=== PATIENT | male | born 1945 | race Caucasian/White ===

== ENCOUNTER → 2018-11-10 | Outpatient (CLI) | END | disposition home or self-care (01) ==

== ENCOUNTER → 2018-12-02 | Outpatient (CLI) | payer MEDICARE, BC ==
[~2018-12-02] MED LIST: ATOR-2 PO; CARV3.1260 PO; FURO20TA3 PO; GLIP2.5T3 PO; METF100010 PO
--- NOTE | 2018-12-02 15:44 | CONS ---
Date/Time of Note Date/Time of Note DATE: 12/02/18 TIME: 15:37 Consult Date/Type/Reason Admit Date/Time Initial Consult Date Kimberley Acharya returns to clinic today approximately 3 weeks after a left knee steroid injection. The last visit his pain was 10 out of 10 he is unable to bear full weight secondary to the pain. Since the injection his pain is much better he continues to have 34/10 pain and/or discomfort. However his main complaint today is that he feels his left lower extremity is heavy and weak. He continues to be unable to walk long distances such as to his [place] secondary to this weakness. He denies any lower back pain. Denies any numbness or tingling. He does state he has some issues with balance and at times requires to hold onto something. He does not want to use a gait aid as it exacerbates his right shoulder pain. Objective Weight: 204 pounds Height: 5 foot 7 inches Temperature: 98.0 Heart Rate: 70 Blood Pressure: 115/58 Respiratory Rate: 12 Exam General: Alert, oriented x3. No Acute Distress. Heart: Regular rate and rhythm. Lungs: No respiratory distress. No accessory muscle use. Musculoskeletal: Left Knee This is a well developed male who is alert, oriented times three and in no apparent distress. Skin is intact over the left knee. In addition there are multiple chronic but healing ulcers around the ankle and distal tibia. There is no signs of infection or drainage. There is 1+ pitting edema and chronic vascular changes in the foot and toes. Observation of the patient's gait reveals a minimally antalgic gait with Varus thrust. Frontal plane alignment is varus. The patient does have some difficulty keeping equilibrium while walking down the hallway. There is pain on palpation of medial joint line. The patient demonstrates grinding anteriorly with ROM. Range of motion: 5 extension to approximately 120 degrees of flexion. Collateral ligament testing reveals no instability with varus or valgus stress at 0 and 30 degrees of flexion. Negative Lin's and negative posterior drawer. Neurovascularly intact with 5/5 EHL/tibialis anterior/gastroc. Sensation intact to light touch in a sural, saphenous, deep peroneal, superficial peroneal, medial and lateral plantar nerve distribution. Palpable, symmetric dorsalis pedis and posterior tibial pulses in both lower extremities. Hip examination normal. Deep tendon reflexes +1 bilaterally lower extremity Assessment/Plan Chief Complaint/Hosp Course 73-year-old male 2 weeks status post left knee steroid injection. The steroid injection significantly helped the pain. However he does feel weakness in his left lower extremity. On examination today I do have some concerns about his balance. This may be contributing to his left lower extremity weakness. There are no obvious neural deficits. His weakness can also be from deconditioning and disuse. Plan: Physical therapy for strengthening and kinematic optimization of his left knee. He may also benefit from gait and balance training Follow-up with PCP regarding potential balance issue Follow-up in 6-8 weeks prior to his trip to [facility] for reevaluation of the left knee. JOSELYN ROBERSON MD Dec 02, 2018 15:44
== END | disposition home or self-care (01) ==
LOC: HKI 14:00
PROVIDERS: ATTEND Orthopaedic Surgery Adult Reconstructive Orthopaedic Surgery
DX: M25.562 Pain in left knee (principal)
CPT/HCPCS: G0463